=== PATIENT | male | born 1955 | race Caucasian/White ===

== ENCOUNTER 2022-05-06 08:53 | Outpatient (CLI) | payer OTHER ==
[~2022-05-06 08:53] MED LIST: DIOVAN HCT 161 UDTAB PO; NORVASC5 MG PO; PLAVIX75 MG PO; ULTRACET
== END 2022-05-06 09:03 | disposition home or self-care (01) ==
LOC: TOM 08:53
PROVIDERS: ATTEND Internal Medicine Cardiovascular Disease
DX: I27.82 Chronic pulmonary embolism (principal)
CPT/HCPCS: 71260; Q9965; 71275

== ENCOUNTER 2022-12-31 12:07 | Outpatient (CLI) | payer OTHER | END 2022-12-31 12:13 | disposition home or self-care (01) | LOC: TOM 12:07 | PROVIDERS: ATTEND Specialist | DX: J84.89 Other specified interstitial pulmonary diseases (principal) ==

== ENCOUNTER 2023-09-28 10:10 | Outpatient (CLI) | payer OTHER | END 2023-09-28 10:22 | disposition home or self-care (01) | LOC: TOM 10:10 | PROVIDERS: ATTEND Specialist | DX: J84.10 Pulmonary fibrosis, unspecified (principal) ==

== ENCOUNTER 2023-12-22 08:18 | Outpatient (CLI) | payer OTHER | END 2023-12-22 08:22 | disposition home or self-care (01) | LOC: TOM 08:18 | PROVIDERS: ATTEND Internal Medicine Gastroenterology | DX: R10.84 Generalized abdominal pain (principal) ==